=== PATIENT | male | born 1960 | race Caucasian/White ===

== ENCOUNTER 2020-07-19 14:50 | Emergency (ER) | payer OTHER, MEDICAID ==
[~2020-07-19] VITALS: Ht 195.6 cm; Wt 88.9 kg
[2020-07-19 14:58] VITALS: TEMP 98.7
[2020-07-19] MEDS ORDERED: PROAIR HFA0.09 MG/AC IH (15:13)
[2020-07-19] MEDS ORDERED: ASPIRIN 81M81 MG/TA2 PO (15:14)
[2020-07-19] MEDS ORDERED: SINEMET 25/101 UDTAB PO (15:15)
[2020-07-19] MEDS ORDERED: HYGROTON 2525 MG/TAB (15:15)
[2020-07-19] MEDS ORDERED: COLACE 100100 MG/CAP PO (15:16)
[2020-07-19] MEDS ORDERED: VITAMIN D31000 IU PO (15:16)
[2020-07-19 15:20] LABS: BASO # 0.1 (0.0-0.2); BASO % 0.8 % (0.0-2.0); EOS # 0.2 (0.0-0.7); EOS % 1.4 % (0-4.0); GRAN # 6.4 (1.4-6.5); GRAN % 61.4 % (42.2-75.2); HEMATOCRIT 46.5 % (42.0-52.0); HEMOGLOBIN 15.4 g/dl (13.5-18.0); LYMPH # 2.6 (1.2-3.4); LYMPH % 24.6 % (20.0-51.0); MEAN CELL VOLUME 91 fl (80.0-100.0); MEAN CORPUSCULAR HEMOGLOBIN 30 pg (27.0-31.0); MEAN CORPUSCULAR HGB CONC 33 g/dl (33.0-37.0); MEAN PLATELET VOLUME 9.9 fl (7.4-10.4); MONO # 1.2 (0.1-0.6); MONO % 11.3 % (1.7-9.3); PLATELET COUNT 205 K/mm3 (130-400); RED BLOOD COUNT 5.09 M/mm3 (4.20-5.60); REDCELL DISTRIBUTION WIDTH-CV 13.1 % (11.5-14.5)
[2020-07-19] MEDS ORDERED: ARICEPT10 MG PO (15:26)
[2020-07-19] MEDS ORDERED: DULCOLAX S10 MG/SUPP RC (15:26)
[2020-07-19] MEDS ORDERED: LINZESS72 MCG PO (15:27)
[2020-07-19] MEDS ORDERED: MOBIC15 MG PO (15:27)
[2020-07-19] MEDS ORDERED: GOOD NEIGH1200 MG/15 PO (15:28)
[2020-07-19] MEDS ORDERED: MULTIPLE VITAMI1 TA5 PO (15:29)
[2020-07-19] MEDS ORDERED: MIRALAX PA17 GM/Dose PO (15:29)
[2020-07-19] MEDS ORDERED: ZOLOFT 25MG25 MG PO (15:30)
[2020-07-19] MEDS ORDERED: SENNA-LAX8.6 MG PO (15:30)
[2020-07-19] MEDS ORDERED: TYLENOL 500MG500 MG PO (15:31)
[2020-07-19] MEDS ORDERED: ULTRAM 50MG TAB50 MG PO (15:31)
[2020-07-19 16:01] LABS: ALANINE AMINOTRANSFERASE 15 U/L (4-49); ALBUMIN 4.3 gm/dL (3.5-5.0); ALKALINE PHOSPHATASE 67 U/L (50-136); ANION GAP 11 mmol/L (7-16); AST,SGOT 35 U/L (15-37); BILIRUBIN,TOTAL 0.5 mg/dL (0.0-1.0); BLOOD UREA NITROGEN 33 mg/dL (9-20); CALCIUM 9.7 mg/dL (8.4-10.2); CARBON DIOXIDE 30 mmol/L (22-30); CHLORIDE 99 mmol/L (98-107); CREATININE, serum 1.54 (0.66-1.25); GLUCOSE 80 mg/dL (74-106); POTASSIUM 3.7 mmol/L (3.4-5.0); SODIUM 140 mmol/L (137-145); TOTAL PROTEIN 7.7 gm/dL (6.4-8.2)
[2020-07-19 16:05] LABS: C-REACTIVE PROTEIN < 0.5 mg/dL (0.0-0.9)
[2020-07-19 16:12] LABS: TROPONIN-I < 0.012 ng/mL (0.000-0.035)
[2020-07-19 16:32] LABS: COLLECTION METHOD CATHETER
[2020-07-19 16:44] LABS: HYALINE CAST >12 /lpf; MUCOUS Present /lpf; PH 6 (5-8); URINE APPEARANCE Hazy; URINE BACTERIA None Seen /hpf; URINE BILIRUBIN Negative (NEGATIVE); URINE BLOOD Negative (NEGATIVE); URINE COLOR Yellow; URINE GLUCOSE Negative (NEGATIVE); URINE KETONE Negative (NEGATIVE); URINE LEUKOCYTE ESTERASE Negative (NEGATIVE); URINE NITRATE Negative (NEGATIVE); URINE PROTEIN(semi-quant) 1+ (NEGATIVE); URINE RBC 0-2 /hpf; URINE UROBILINOGEN >=4.0 mg/dL (NEGATIVE)
[2020-07-19 17:14] VITALS: BP 132/97; PULSE 58
== END 2020-07-19 17:28 | disposition home or self-care (01) ==
LOC: COL.ER 14:50
PROVIDERS: Emergency Medicine
DX: I95.9 Hypotension, unspecified (principal); I10 Essential (primary) hypertension; G20 Parkinson's disease
CPT/HCPCS: J7030

== ENCOUNTER 2021-09-05 18:07 | Inpatient (IN) | payer MEDICARE, MEDICAID ==
[~2021-09-05] VITALS: Ht 182.9 cm; Wt 86.4 kg
[~2021-09-05 18:07] MED LIST: ARICEPT10 MG PO; ASPIRIN 81M81 MG/TA2 PO; COLACE 100100 MG/CAP PO; DULCOLAX S10 MG/SUPP RC; GOOD NEIGH1200 MG/15 PO; HYGROTON 2525 MG/TAB; LINZESS72 MCG PO; MIRALAX PA17 GM/Dose PO; MOBIC15 MG PO; MULTIPLE VITAMI1 TA5 PO; PROAIR HFA0.09 MG/AC IH; SENNA-LAX8.6 MG PO; SINEMET 25/101 UDTAB PO; TYLENOL 500MG500 MG PO; ULTRAM 50MG TAB50 MG PO; VITAMIN D31000 IU PO; ZOLOFT 25MG25 MG PO
[2021-09-05 18:47] LABS: BASO # 0.1 K/mm3 (0.0-0.2); BASO % 0.5 % (0.0-2.0); EOS # 0.1 K/mm3 (0.0-0.7); EOS % 1.1 % (0-4.0); GRAN # 6.5 K/mm3 (1.4-6.5); GRAN % 70.4 % (42.2-75.2); HEMATOCRIT 46.7 % (42.0-52.0); HEMOGLOBIN 15.7 g/dl (13.5-18.0); LYMPH # 1.9 K/mm3 (1.2-3.4); LYMPH % 20.4 % (20.0-51.0); MEAN CELL VOLUME 90 fl (80.0-100.0); MEAN CORPUSCULAR HEMOGLOBIN 30 pg (27.0-31.0); MEAN CORPUSCULAR HGB CONC 34 g/dl (33.0-37.0); MEAN PLATELET VOLUME 9.4 fl (7.4-10.4); MONO # 0.7 K/mm3 (0.1-0.6); MONO % 7.2 % (1.7-9.3); PLATELET COUNT 201 K/mm3 (130-400); RED BLOOD COUNT 5.17 M/mm3 (4.20-5.60); REDCELL DISTRIBUTION WIDTH-CV 12.7 % (11.5-14.5)
[2021-09-05 19:02] LABS: BILIRUBIN,TOTAL 0.5 mg/dL (0.2-1.2); CALCIUM 10.1 mg/dL (8.4-10.2); CREATININE, serum 1.12 mg/dL (0.72-1.25); POTASSIUM 3.7 mmol/L (3.5-4.5); TOTAL PROTEIN 7.4 gm/dL (6.2-8.1)
[2021-09-06] VITALS (15 sets, daily range): BP systolic 115–155; BP diastolic 73–98; PULSE 55–90; TEMP 97.9–99.9
[2021-09-06] LABS: COLLECTION METHOD CATHETER
[2021-09-06 00:05] LABS: PH 5 (5-8); SQUAMOUS EPITHELIAL None Seen /hpf; URINE APPEARANCE Clear; URINE BACTERIA None Seen /hpf; URINE BILIRUBIN Negative (NEGATIVE); URINE BLOOD Negative (NEGATIVE); URINE COLOR Yellow; URINE GLUCOSE Negative (NEGATIVE); URINE KETONE Trace (NEGATIVE); URINE LEUKOCYTE ESTERASE Negative (NEGATIVE); URINE NITRATE Negative (NEGATIVE); URINE PROTEIN(semi-quant) Negative (NEGATIVE); URINE RBC 0-2 /hpf
--- NOTE | 2021-09-06 00:50 | NUR ---
PATIENT ARRIVED TO ROOM 345 FROM ER. PATIENT CAME IN FROM [facility]. PATIENT HAS RIGHT HIP FRACTURE AND CONTRACTURES. PATIENT IS NONVERBAL SO NOT ALL ADMIT DATA COULD BE OBTAINED.. PATIENT HAS 20 G LEFT FORERM IV. PATIENT HAS MARTE. OUTPUT IS CLEAR AND YELLOW.PATIENT IS NPO AND DNR. NO FURTHER NEEDS AT THIS TIME. CALL LIGHT WITHIN REACH. HEAD TO TOE ASSESSMENT COMPLETE.
[2021-09-06] MEDS ORDERED: NAMENDA 10MG TA10 MG PO (01:25)
[2021-09-06] MEDS ORDERED: PRILOSEC 20MG20 MG PO (01:26)
[2021-09-06] MEDS ORDERED: PRAVACHOL80 MG PO (01:27)
--- NOTE | 2021-09-06 06:36 | NUR ---
PATIENT SLEPT THROUGHOUT NIGHT. NO NEEDS AT THIS TIME. WILL REPORT TO DAYSHIFT
[2021-09-06 08:16] LABS: BASO # 0.1 K/mm3 (0.0-0.2); BASO % 0.5 % (0.0-2.0); EOS % 0.2 % (0-4.0); GRAN # 8.4 K/mm3 (1.4-6.5); GRAN % 83.9 % (42.2-75.2); HEMATOCRIT 40.6 % (42.0-52.0); LYMPH # 0.8 K/mm3 (1.2-3.4); LYMPH % 8.2 % (20.0-51.0); MEAN CELL VOLUME 90 fl (80.0-100.0); MEAN CORPUSCULAR HEMOGLOBIN 30 pg (27.0-31.0); MEAN CORPUSCULAR HGB CONC 34 g/dl (33.0-37.0); MONO # 0.7 K/mm3 (0.1-0.6); MONO % 6.7 % (1.7-9.3); PLATELET COUNT 188 K/mm3 (130-400); RED BLOOD COUNT 4.52 M/mm3 (4.20-5.60)
[2021-09-06 08:18] LABS: HEMOGLOBIN 13.7 g/dl (13.5-18.0)
--- NOTE | 2021-09-06 10:33 | NUR ---
The patient has dementia. FORREST contacted the patient's , Brie (ph#[phone]), to discuss discharge plan. The patient resides at [facility] in long-term care. His PCP is Dr. Janell Cobb. rBie reports that the patient does have a DPOA-HC and that Frohna should have a copy of it. She reports that she is the patient's DPOA-HC. Brei reports that the plan is for the patient to return back to [facility] upon discharge. The patient has a femur fracture and will have surgery once medically cleared. FORREST contacted and faxed updates to Baylee at [facility]. FORREST also requested a copy of the patient's DPOA-HC. SW to continue to follow. *Discharge plan: [facility]*
--- NOTE | 2021-09-06 10:45 | NUR ---
PATIENT HAS BEEN CLEARED FOR SURGERY TODAY. ORTHO NOTIFIED. VERBAL CONSENT OBTAINED OVER THE PHONE WITH PATIENT'S AND TWO RN'S. CONSENT ON CHART.
--- NOTE | 2021-09-06 11:14 | NUR ---
SW received the patient's DPOA-HC and DNR, via fax. SW placed the documents in the patient's chart. The patient's DPOA-HC is his .
[2021-09-06 13:03] LABS: POTASSIUM 3.4 mmol/L (3.4-5.0)
[2021-09-06 13:04] LABS: CALCIUM 9.5 mg/dL (8.4-10.2)
--- NOTE | 2021-09-06 14:00 | NUR ---
PATIENT GOING DOWN TO SURGERY. CONSENT ON CHART.
--- NOTE | 2021-09-06 15:30 | NUR ---
PATIENT BACK IN ROOM AFTER SURGERY. PATIENT IS DROWSY BUT COMFORTABLE. VSS. HEAD TO TOE ASSESSMENT WNL. FOAM TAPE DRESSING TO RIGHT HIP IS CD&I AND WITH ICE PACK INPLACE.
--- NOTE | 2021-09-06 21:30 | NUR ---
PT ROUSES WHEN NAME CALLED. TAKES HS MEDS CRUSHED IN PUDDING, SWALLOWS WELL. HAS IVF TO LEFT FOREARM NO REDNESS OR SWELLING. MARTE TO BSD WITH YELLOW URINE. NON VERBAL. DRSG TO RT HIP D/I.
[2021-09-07 03:16] VITALS: BP 134/89; PULSE 60; TEMP 98.7
--- NOTE | 2021-09-07 04:00 | NUR ---
RESTING IN BED. ROUSES WITH VERBAL STIMULATION. IVF CONTINUE. ROSANNA PATENT.
--- NOTE | 2021-09-07 06:57 | NUR ---
Pt resting in bed during shift change. Bed alarm on
[2021-09-07 07:00] VITALS: BP 113/78; PULSE 57; TEMP 98.7
--- NOTE | 2021-09-07 09:00 | NUR ---
First visit from the insurance clerk. No needs right now.
--- NOTE | 2021-09-07 10:30 | NUR ---
Assessment complete. Head of bed elevated 30 degrees. Nonverbal and not alert. Patient unable to answer/respond to some assessment questions. Nasal cannula at 2L O2. IV of D5LR infusing at 100mL/hr on left wrist, no redness or edema noted. Peacock catheter intact with clear yellow urine in collecting bag. Right hip occlusive dressing CDI. SCDs and DILLON hose on. Patient has audible S1 and S2 sounds and clear upper lobe sounds in the lungs. Bilateral base sounds in the lung were diminished. Pulses +1 in radial, pedal, and tibial sites. VSS. Patient taking sips of water and tolerating.
[2021-09-07 10:50] VITALS: BP 118/80; PULSE 72; TEMP 98.5
[2021-09-07 11:13] VITALS: BP 106/74; PULSE 68; TEMP 98.1
--- NOTE | 2021-09-07 13:47 | NUR ---
FORREST fax[facility].
--- NOTE | 2021-09-07 14:09 | NUR ---
Speech therapy done seeing pt, recommendations given and orders entered
--- NOTE | 2021-09-07 15:34 | NUR ---
PATIENT IS SLIGHTLY DROWSY LAYING IN BED. PATIENT HAS 2 AQUACELL DRESSING TO RIGHT HIP. PATIENT HAS IV TO LEFT FOREARM. SPEECH STATED DIET CAN BE PROGRESSED TO MECHANICAL SOFT. PATIENT IS NONVERBAL AND CONTRACTURED. PATIENT HAS ICE TO RIGHT HIP. PATIENT TO TAKE PILLS CRUSHED IN APPLESAUCE. PAIN MEDS GIVEN PER ORDERS. NO FURTHER NEEDS AT THIS TIME. CALL LIGHT WITHIN REACH.
[2021-09-07 15:54] VITALS: BP 130/85; PULSE 79; TEMP 98.4
--- NOTE | 2021-09-07 19:30 | NUR ---
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 Assessment complete. Alert but not oriented. Assisted with dinner tray. Dressing to right hip-aquacell x2-CDI. Fresh ice pack applied. Repositioned in bed with pillow support. HS meds given in applesauce. SCD/TEDs bilat. No s/s of pain or discomfort noted. Call light in reach/bed alarm on. Will monitor.
[2021-09-07 19:52] VITALS: BP 107/74; PULSE 77; TEMP 98
[2021-09-08] VITALS (7 sets, daily range): BP systolic 115–165; BP diastolic 70–94; PULSE 70–75; TEMP 97.7–100.2
[2021-09-08 07:39] LABS: BASO % 0.5 % (0.0-2.0); EOS # 0.3 K/mm3 (0.0-0.7); GRAN # 5.7 K/mm3 (1.4-6.5); GRAN % 71.4 % (42.2-75.2); LYMPH # 1.2 K/mm3 (1.2-3.4); LYMPH % 15.2 % (20.0-51.0); MEAN CELL VOLUME 92 fl (80.0-100.0); MEAN CORPUSCULAR HGB CONC 33 g/dl (33.0-37.0); MEAN PLATELET VOLUME 10.1 fl (7.4-10.4); MONO # 0.7 K/mm3 (0.1-0.6); MONO % 8.5 % (1.7-9.3); PLATELET COUNT 144 K/mm3 (130-400); REDCELL DISTRIBUTION WIDTH-CV 13.1 % (11.5-14.5)
[2021-09-08 07:44] LABS: HEMATOCRIT 33.1 % (42.0-52.0); MEAN CORPUSCULAR HEMOGLOBIN 31 pg (27.0-31.0)
[2021-09-08 08:09] LABS: CALCIUM 9.4 mg/dL (8.4-10.2); CREATININE, serum 1.04 mg/dL (0.72-1.25); POTASSIUM 3.3 mmol/L (3.5-4.5)
[2021-09-08] MEDS ORDERED: VITAMIN C500 MG PO ×2 (08:22)
--- NOTE | 2021-09-08 09:13 | NUR ---
Pt has wheezes in his right upper chest and when pt asked to cough, his cough is not clear. Hospitalist notified, new orders received. Also notified of increase in temp.
--- NOTE | 2021-09-08 11:00 | NUR ---
Pt sitting up in bed. [facility] student Latha, repositioned and shaved his face. Pt is more awake now and did cough when asked. He is slowly taking the oral potassium mixed with thickened juice.
--- NOTE | 2021-09-08 11:10 | NUR ---
The hospitalist notified FORREST that the patient may be able to discharge tomorrow. If not tomorrow, the patient will be here through the weekend. FORREST notified and [facility] FORREST attempted to contact and update the patient's , Brie. Brie's voicemail has not been set up yet and FORREST was unable to leave a message.
--- NOTE | 2021-09-08 12:55 | NUR ---
pt. ate 10% of lunch, X1 assist with meals, tolerated well. Thickened liquids, X2 doses of K+ given on shift. pillow under right side for pressure relief.
--- NOTE | 2021-09-08 16:32 | NUR ---
Pt BP was elevated. Gave PRN pain medication and did notify hospitalist. Pt was resting, but when repositioned, he did grimmace in pain. Recheck of BP now of 133/90
[2021-09-08] MEDS ORDERED: ASPIRIN 81M81 MG/TA2 PO ×2 (17:08)
--- NOTE | 2021-09-08 19:17 | NUR ---
Pt has done okay throughout the day. Did not have much of an appetite, but did eat some. Pt repositioned throughout the day. Pt did have some grimmacing while doing this, but then relaxed quickly. ICE pack to right hip throughout the day. Bed alarm on
--- NOTE | 2021-09-08 19:32 | NUR ---
RECEIVED CHANGE OF SHIFT REPORT FROM DAY SHIFT NURSE.
--- NOTE | 2021-09-08 23:00 | NUR ---
ATTEMPTED TO FEED PATIENT SMALL AMOUNT OF APPLESAUCE TO DETERMINE IF PATIENT CAN WAKE ENOUGH AND STAY AWAKE ENOUGH TO TAKE CRUSHED MEDS/MIXED WITH FOOD. OBSERVED PATIENT WAKE MOMENTARILY THEN FELL BACK TO SLEEP, BREATHING NONLABORED AND EVEN. WOULD HAVE SOME EYE CONTACT WITH STAFF WHEN HE WAS AWAKE AFTER NAME CALLED AND GENTLE SHAKING OF SHOULDER. MARTE IN PLACE, DRAINING DARK YELLOW TO BRITTON URINE. PATIENT GIVEN TYLENOL SUPP FOR COMFORT MAINTENANCE.
[2021-09-09 03:04] VITALS: TEMP 100.1
[2021-09-09 05:09] VITALS: BP 122/73; PULSE 66; TEMP 99.6
[2021-09-09 06:44] LABS: BASO % 0.3 % (0.0-2.0); EOS # 0.1 K/mm3 (0.0-0.7); EOS % 0.7 % (0-4.0); GRAN # 7.1 K/mm3 (1.4-6.5); GRAN % 82.2 % (42.2-75.2); HEMOGLOBIN 10.1 g/dl (13.5-18.0); LYMPH # 0.8 K/mm3 (1.2-3.4); LYMPH % 8.6 % (20.0-51.0); MEAN CELL VOLUME 92 fl (80.0-100.0); MEAN CORPUSCULAR HEMOGLOBIN 31 pg (27.0-31.0); MEAN CORPUSCULAR HGB CONC 33 g/dl (33.0-37.0); MEAN PLATELET VOLUME 10.8 fl (7.4-10.4); MONO # 0.7 K/mm3 (0.1-0.6); MONO % 7.9 % (1.7-9.3); PLATELET COUNT 141 K/mm3 (130-400); RED BLOOD COUNT 3.28 M/mm3 (4.20-5.60); REDCELL DISTRIBUTION WIDTH-CV 12.9 % (11.5-14.5)
[2021-09-09 06:49] LABS: HEMATOCRIT 30.3 % (42.0-52.0)
[2021-09-09 07:01] LABS: CALCIUM 9.3 mg/dL (8.4-10.2); CREATININE, serum 0.82 mg/dL (0.72-1.25); POTASSIUM 3.3 mmol/L (3.5-4.5)
--- NOTE | 2021-09-09 07:09 | NUR ---
CHANGE OF SHIFT REPORT GIVEN TO DAY SHIFT NURSE, CATALINA ESTEVEZ.
[2021-09-09 08:09] VITALS: BP 129/95; PULSE 74; TEMP 98.6
--- NOTE | 2021-09-09 09:48 | NUR ---
SPEECH HAD A DIFFICULT TIME DURING ASSESSMENT. PATIENT DIET RECOMMENDED TO GO BACK TO PUREE & HONEY THICK. PATIENT IS NOT SAFE, PER ST, FOR [facility] SOFT DIET.
--- NOTE | 2021-09-09 09:49 | NUR ---
16 FR MARTE REMOVED, 9CC ASPIRATED FROM BALLOON. BALLOON INTACT, NO REDDNESS, SWELLING OR DRAINAGE FROM URETHRA. PT DID NOT EXHIBIT SX OF PAIN DURING REMOVAL. 300ML BRITTON, CLEAR URINE IN BAG.
--- NOTE | 2021-09-09 12:37 | NUR ---
pt exhibits coarse crackles to anterior lobes and upper posterior lobes bilat. audible gurgles. Pt is cognitively unable to have a productive cough. O2 is 85% on RA, o2 initiated at 2L via NC. flushed to face and chest, warm and moist to touch, axillary temp 99.8. Pt rests with eyes closed at this time.
[2021-09-09 12:54] VITALS: BP 157/96; PULSE 78; TEMP 99.8
--- NOTE | 2021-09-09 13:13 | NUR ---
PT O2 SATS IMPROVE FROM 85% ON RA TO 93% ON 2L NC. AUDIBLE GURGLES AND COARSE CRACKLES CONTINUE, BREATHING IS NON-LABORED, MOUTH BREATING, DEEP BREATHS. PT RESTING WITH EYES CLOSED WITH HOB ELEVATED TO 45 DEGREES.
--- NOTE | 2021-09-09 13:15 | NUR ---
PATIENT OXYGEN SAT DROPPED INTO MID TO UPPER 80'S AT REST. 02 @ 2L PER NC APPLIED.
--- NOTE | 2021-09-09 14:21 | NUR ---
The hospitalist notified FORREST that he would like to hold off on discharge for today. FORREST [facility]. Ave reports that they are not able to take on the weekend, if the patient is ready to discharge then. FORREST updated the hospitalist and RN. The patient is to be here through the weekend. FORREST contacted and updated the patient's . His was in agreement to the plan.
[2021-09-09 15:32] VITALS: BP 139/96; PULSE 78; TEMP 99
--- NOTE | 2021-09-09 18:25 | NUR ---
PATIENT INCONTINENT OF BOWL & BLADDER. PATIENT CLEANED UP AND REPOSITIONED TO COMFORT IN BED. BED ALARM ON. CALL LIGHT IN REACH.
[2021-09-09 20:40] VITALS: BP 121/76; PULSE 88; TEMP 98.7
--- NOTE | 2021-09-09 21:45 | NUR ---
PT IN BED, REPOSITIONED AND SAVANNAH CARE GIVEN FOR INCONTINENCE. PT NON VERBAL, TAKES HS MEDS CRUSHED IN THICKENED LIQUIDS. HAS AQUACEL DRSG X2 TO RT HIP/RT OUTER THIGH. BRUISING TO RT INNER THIGH NOTED. WEARING OXYGEN AT 2L/NC. RESTARTED IV SITE TO RT FOREARM #20 INSYTE. DC'D LEFT FOREARM SITE, ANGIOCATH INTACT.
[2021-09-10 01:11] VITALS: BP 126/82; PULSE 80; TEMP 98.6
--- NOTE | 2021-09-10 01:38 | NUR ---
MEDICATED WITH TRAMADOL 50MG PO FOR PAIN WITH ACTIVITY.
[2021-09-10 05:11] VITALS: BP 136/94; PULSE 103; TEMP 99.5
--- NOTE | 2021-09-10 06:00 | NUR ---
PT TAKES AM MED WITH THICKENED LIQUID, SWALLOWS WITH MINIMAL COUGH. HAS BEEN INC OF URINE THIS SHIFT.
[2021-09-10 07:38] VITALS: BP 132/89; PULSE 66; TEMP 98.8
--- NOTE | 2021-09-10 08:00 | NUR ---
PATIENT IS CONFUSED AND NON-VERBAL. PATIENT HAS DIFFICULTY WITH SWALLOWING AND IS HIGH RISK FOR ASPIRATION. PATIENT CURRENTLY ON PUREE DIET/HONEY THICK PER SPEECH. AM MEDS CRUSHED AND PUT IN HONEY THICK, PATIENT STILL COUGHED SEVERAL TIMES WITH HOB UP AT 90 DEGREES AND LOTS OF VERBAL QUES. PATIENT OPENS EYES WHEN TALKED TO AND RESPONDS TO PAIN. TURN Q2H. RIGHT HIP DRESSINGS X2 ARE CD&I WITH CAMERON. ROUNDED EARLY THIS AM. INCONTINENT OF BOWL/BLADDER. DNR STATUS. HEAD TO TOE ASSESSMENT COMPLETE, SEE CHARTING. BED ALARM ON. CALL LIGHT IN REACH.
[2021-09-10 08:23] LABS: BASO % 0.5 % (0.0-2.0); EOS # 0.1 K/mm3 (0.0-0.7); EOS % 1.5 % (0-4.0); GRAN # 6.2 K/mm3 (1.4-6.5); GRAN % 76.4 % (42.2-75.2); LYMPH # 1.1 K/mm3 (1.2-3.4); LYMPH % 13.7 % (20.0-51.0); MEAN CELL VOLUME 91 fl (80.0-100.0); MEAN CORPUSCULAR HEMOGLOBIN 31 pg (27.0-31.0); MEAN CORPUSCULAR HGB CONC 34 g/dl (33.0-37.0); MONO # 0.6 K/mm3 (0.1-0.6); MONO % 7.7 % (1.7-9.3); PLATELET COUNT 151 K/mm3 (130-400); RED BLOOD COUNT 3.24 M/mm3 (4.20-5.60)
[2021-09-10 08:25] LABS: HEMATOCRIT 29.6 % (42.0-52.0)
[2021-09-10 08:38] LABS: ALBUMIN 2.5 gm/dL (3.4-4.8); CALCIUM 8.9 mg/dL (8.4-10.2); CREATININE, serum 0.79 mg/dL (0.72-1.25); PHOSPHOROUS 2.9 mg/dL (2.3-4.7); POTASSIUM 3.5 mmol/L (3.5-4.5)
[2021-09-10 11:41] VITALS: BP 121/89; PULSE 68; TEMP 99.5
--- NOTE | 2021-09-10 12:10 | NUR ---
PATIENT GOING DOWN VIA BED FOR CT
--- NOTE | 2021-09-10 12:45 | NUR ---
RADIOLOGIST CALLED UP REGUARDING 345'S CT SCAN. PE'S X2 IN RLL, SEE SCAN. HOSPITALIST NOTIFIED. SEE NEW ORDERS.
[2021-09-10 13:49] LABS: PARTIAL THROMBOPLASTIN TIME 19.6 SECONDS (26.0-37.0)
[2021-09-10 16:02] VITALS: BP 128/92; PULSE 71; TEMP 98.9
[2021-09-10 19:48] VITALS: BP 147/89; PULSE 70; TEMP 100.3
--- NOTE | 2021-09-10 21:21 | NUR ---
PT TAKES CRUSHED MEDS IN MAGIC CUP SUPPLEMENT, COUGHS AT INTERVALS, APPEARS TO SWALLOW. NOTED 2 SCRATCHES ON RT JAW. HAS OXYGEN AT 1L/NC. HAS HEPARIN GTT TO LEFT HAND INFUSING WITHOUT PROBLEM. HAS IVF TO RT FOREARM INFUSING WITHOUT REDNESS OR SWELLING. PT NON VERBAL. GIVEN DOSE OF TRAMADOL FOR PAIN WITH ACTIVITY.
[2021-09-11] VITALS (7 sets, daily range): BP systolic 100–181; BP diastolic 70–97; PULSE 58–69; TEMP 98.4–99.6
--- NOTE | 2021-09-11 03:00 | NUR ---
HEP XA=0.62, NO CHANGE. NEXT HEP XA 0900.
[2021-09-11 06:36] LABS: BASO # 0.1 K/mm3 (0.0-0.2); BASO % 0.6 % (0.0-2.0); EOS # 0.2 K/mm3 (0.0-0.7); EOS % 2.6 % (0-4.0); GRAN # 5.6 K/mm3 (1.4-6.5); HEMOGLOBIN 10.1 g/dl (13.5-18.0); LYMPH # 1.4 K/mm3 (1.2-3.4); LYMPH % 17.4 % (20.0-51.0); MEAN CELL VOLUME 90 fl (80.0-100.0); MEAN CORPUSCULAR HEMOGLOBIN 30 pg (27.0-31.0); MEAN CORPUSCULAR HGB CONC 34 g/dl (33.0-37.0); MONO # 0.7 K/mm3 (0.1-0.6); MONO % 8.8 % (1.7-9.3); PLATELET COUNT 174 K/mm3 (130-400); RED BLOOD COUNT 3.33 M/mm3 (4.20-5.60)
[2021-09-11 07:02] LABS: ALBUMIN 2.6 gm/dL (3.4-4.8); CALCIUM 8.8 mg/dL (8.4-10.2); CREATININE, serum 0.83 mg/dL (0.72-1.25); POTASSIUM 3.4 mmol/L (3.5-4.5)
--- NOTE | 2021-09-11 08:00 | NUR ---
PATIENT IS CONFUSED AND NON-VERBAL. PATIENT HAS DIFFICULTY WITH SWALLOWING AN IS HIGH RISK FOR ASPIRATION. PATIENT CURRENTLY ON PUREE DIET/HONEY THICK PER SPEECH. AM MEDS CRUSHED AND PUT IN HONEY THICK, PATIENT STILL COUGHED SEVERAL TIMES WITH HOB UP AT 90 DEGREES AND LOTS OF VERBAL QUES. PATIENT OPENS EYES WHEN TALKED TO AND RESPONDS TO PAIN. TURN Q2H. RIGHT HIP DRESSINGS X2 ARE CD& WITH ASSURED INFORMATION SECURITYELL. ROUNDED EARLY THIS AM. INCONTINENT OF BOWL/BLADDER. EXTERNAL MALE CATH INPLACE. URINE IS CLEAR YELLOW IN MARTE BAG. DNR STATUS. HEAD TO TOE ASSESSMENT COMPLETE, SEE CHARTING. BED ALARM ON. CALL LIGHT IN REACH.
[2021-09-11 15:31] LABS: HEMOGLOBIN 9.8 g/dl (13.5-18.0)
--- NOTE | 2021-09-11 21:00 | NUR ---
MEDICATED WITH HS MEDS CRUSHED IN THICK GATORADE, SWALLOWS FAIR WITH HOB ELEVATED 90 DEGREES. OFF OXYGEN, SAO2 95%. HAS HEP GTT AT 1550 UNITS/HR INFUSING TO LEFT HAND AND IVF INFUSING TO RT FOREARM, NO REDNESS OR SWELLING NOTED OF EITHER SITE. HAS EXTERNAL MALE CATHETER IN PLACE, YELLOW URINE IN BAG. HAS SCRATCH TO LEFT CHEEK, RT CHEEK SCRATCHES FADED. PT OPENS EYES TO NAME, NON VERBAL. EXTREMITIES STIFF/CONTRACTURED D/T PARKINSONS. HAS BRUISING TO RT INNER THIGH AND SCROTUM. SCDS PLACED BACK ON PT. TRAMADOL GIVEN FOR DISCOMFORT WITH REPOSITIONING. VENITA DRSGS IN PLACE TO RT HIP.
[2021-09-11 21:09] LABS: HEMOGLOBIN 9.2 g/dl (13.5-18.0)
--- NOTE | 2021-09-11 22:55 | NUR ---
HEP GTT DC'D PER DR JOSSE DENNISON.
[2021-09-12 03:52] VITALS: BP 146/81; PULSE 61; TEMP 99.2
--- NOTE | 2021-09-12 03:56 | NUR ---
PT HAS REDDENED CHEEKS AND TEMP 99.2 AXILLARY. MEDICATED WITH TYLENOL SUPPOSITORY AT THIS TIME. EXTERNAL CATH CHANGED AT THIS TIME D/T LEAKING. GOOD OUTPUT THIS SHIFT. PT MORE ALERT THIS SHIFT.
--- NOTE | 2021-09-12 06:00 | NUR ---
PROTONIX GIVEN PO WITH THICKENED GATORADE. ORAL CARES DONE AT THIS TIME.
--- NOTE | 2021-09-12 08:00 | NUR ---
PATIENT IS CONFUSED AND NON-VERBAL. PATIENT HAS DIFFICULTY WITH SWALLOWING AN IS HIGH RISK FOR ASPIRATION. PATIENT CURRENTLY ON PUREE DIET/HONEY THICK PER SPEECH BUT COUGHS FREQUENTLY. AM MEDS CRUSHED AND PUT IN HONEY THICK, PATIENT STILL COUGHED SEVERAL TIMES WITH HOB UP AT 90 DEGREES AND LOTS OF VERBAL QUES. PATIENT OPENS EYES WHEN TALKED TO AND RESPONDS TO PAIN. TURN Q2H. RIGHT HIP DRESSINGS X2 ARE CD&I WITH [facility]. ROUNDED EARLY THIS AM. INCONTINENT OF BOWL/BLADDER. EXTERNAL MALE CATH INPLACE. URINE IS CLEAR YELLOW IN MARTE BAG. DNR STATUS. HEAD TO TOE ASSESSMENT COMPLETE, SEE CHARTING. BED ALARM ON. CALL LIGHT IN REACH.
[2021-09-12 08:22] LABS: MEAN CELL VOLUME 91 fl (80.0-100.0); MEAN CORPUSCULAR HGB CONC 33 g/dl (33.0-37.0); MEAN PLATELET VOLUME 10.2 fl (7.4-10.4); PLATELET COUNT 226 K/mm3 (130-400); RED BLOOD COUNT 2.79 M/mm3 (4.20-5.60); REDCELL DISTRIBUTION WIDTH-CV 13.2 % (11.5-14.5)
[2021-09-12 08:23] LABS: HEMATOCRIT 25.5 % (42.0-52.0); HEMOGLOBIN 8.5 g/dl (13.5-18.0); MEAN CORPUSCULAR HEMOGLOBIN 30 pg (27.0-31.0)
[2021-09-12 08:24] VITALS: BP 107/68; PULSE 64; TEMP 99
--- NOTE | 2021-09-12 10:32 | NUR ---
I spoke with Brie Ochoa, and [facility], about a palliative care approach to her 's care. She is aware that he is at the end stages of Parkinson's disease. She states his thinking is best in the morning when he awakens and then worsens after about an hour so that he sleeps the majority of the day.He may recognize her in the morning but many times he does not even recognize her. [facility] in the [facility] about 3 years because she could no longer manage his care at home. He is currently a DNR status. I went over the fact that his broken hip has taken its toll on him as well as the PE, his difficulty eating--although she reports he eats all of his meals at the [facility] on a special diet. He is nonverbal and nonambulatory. We talked about a feeding tube which she does not feel he would want and she is fearful that he would pull it out. Her primary concern is that he be kept comfortable. We talked for a while about hospice services, that they could be provided in the current fdc, and would focus on comfort as primary goal. She asked if he was "that close". I told her that hospice is used for people with 6 months or less of life expected and that their focus would be on comfort. No more hospitalizations, lab draws and testing, no more therapy, just working to keep him comfortable until his time comes. She very much wants him to return to [facility] because "that is his home now". She will talk with her son and I will call her back in about an hour to see what decisions they make.
--- NOTE | 2021-09-12 12:00 | NUR ---
I contacted [facility] and made referral, sent copies of pt record to them and they can follow as soon as paperwork is signed.
--- NOTE | 2021-09-12 12:16 | NUR ---
, Brie, came to the hospital to talk with me and Dr Eddy about her 's situation. We will move forward with hospice care at [facility] as soon as arrangements can be made and Brie can sign paperwork for hospice.
[2021-09-12 12:18] VITALS: BP 146/94; PULSE 69; TEMP 98
--- NOTE | 2021-09-12 12:47 | NUR ---
Initial visit; Solid Waste Division Supervisor offered prayer at patient's bedside. Patient sleeping though could have heard Solid Waste Division Supervisor's prayer.
[2021-09-12] MEDS ORDERED: ATIVAN 1MG T1 MG/TAB PO (13:23)
[2021-09-12] MEDS ORDERED: TRANSDERM-0.5 MG/21 TD (13:23)
[2021-09-12] MEDS ORDERED: ROXANOL 20MG20 MG/ML SL (13:23)
[2021-09-12] MEDS ORDERED: AMOXICILLIN 8751 TAB PO (13:25)
--- NOTE | 2021-09-12 14:55 | NUR ---
PATIENT DISCHARGING BACK TO [facility], WHERE HE LIVES, ON HOSPICE CARE. PATIENT TRANSPORTED VIA EMS. DC'D BOTH IV SITES AND COVERED WITH [employer]. PATIENT CLEANED UP, TOTAL CARE, AND EXTERNAL MARTE DC'D. PATIENT DISCHARGED TO HOSPICE
--- NOTE | 2021-09-12 14:56 | NUR ---
Patient is ready for discharge today and after meeting with palliative RNSheryl the plan will be for patient to return to [facility] with [facility]. Sheryl faxed referral to [facility] out of [place] and they advised they can start services for patient tomorrow. FORREST contacted Baylee at [facility] who advised they would accept patient back today and plan for [facility] to come out tomorrow for their admission. Patient will require EMS transport. FORREST collaborated with [facility] and HERB Jones to set transport time for between [id number]. FORREST completed EMS forms and placed the originals in the chart and copies on patient's discharge packet. FORREST faxed discharge orders to [facility] along with [facility]. Medications were sent to [facility] in [place]. FORREST contacted patient's , Brie to review discharge plan and she is in agreement. Brie advised patient will be relieved to return to [facility] today. FORREST also updated HERB Saucedo of the above information. Discharge Plan: [facility]ospice
--- NOTE | 2021-09-12 15:50 | NUR ---
Recieved call from [facility] with questions regarding discharge orders. Spoke with Dr Eddy and ANATOLIY Sepulveda and revised orders faxed to [facility] for intermediate care and hospice services starting tomorrow. no follow up appts.
== END 2021-09-12 14:55 | disposition hospice, inpatient (51) | DRG 480 ==
LOC: COL.ER 18:07 → SURG 22:17
PROVIDERS: Internal Medicine; Orthopaedic Surgery; Physician Assistant; Student in an Organized Health Care Education/Training Program; ADMIT Internal Medicine
PROC: 0QS634Z Reposition Right Upper Femur with Internal Fixation Device, Percutaneous Approach (ICD-10-PCS; principal; 2021-09-06 10:15)
PROC: 5A0945A Assistance with Respiratory Ventilation, 24-96 Consecutive Hours, High Flow/Velocity Cannula (ICD-10-PCS; 2021-09-10)
DX: S72.141A Displaced intertrochanteric fracture of right femur, initial encounter for closed fracture (principal); J96.01 Acute respiratory failure with hypoxia; J69.0 Pneumonitis due to inhalation of food and vomit; I26.99 Other pulmonary embolism without acute cor pulmonale; G20 Parkinson's disease; F02.80 Dementia in other diseases classified elsewhere, unspecified severity, without behavioral disturbance, psychotic disturbance, mood disturbance, and anxiety; F43.10 Post-traumatic stress disorder, unspecified; K59.09 Other constipation; Z79.82 Long term (current) use of aspirin; I10 Essential (primary) hypertension; Z51.5 Encounter for palliative care; K21.9 Gastro-esophageal reflux disease without esophagitis; Z66 Do not resuscitate; E87.6 Hypokalemia; D64.9 Anemia, unspecified; E83.42 Hypomagnesemia; W19.XXXA Unspecified fall, initial encounter; Y92.129 Unspecified place in nursing home as the place of occurrence of the external cause; I73.9 Peripheral vascular disease, unspecified; I25.10 Atherosclerotic heart disease of native coronary artery without angina pectoris; Z20.822 Contact with and (suspected) exposure to COVID-19
CPT/HCPCS: 99223-AI; 99232-AI; 99233-AI; 99239; A4314; A9284; C1713; C9113; J0456; J0690; J0696; J1100; J1644; J2250; J2270; J2405; J2543; J2704; J2795; J3010; J3475; J3480; J7030; J7050; J7120; J7121; Q9967